=== PATIENT | male | born 1970 | race African-American/Black ===

== ENCOUNTER 2025-02-27 13:18 | Emergency (ER) | payer OTHER ==
[~2025-02-27] VITALS: Ht 177.8 cm; Wt 104.5 kg
[2025-02-27 13:23] VITALS: BP_DIAS 88; TEMP 97.9
[2025-02-27 15:40] VITALS: BP_SYST 136; PULSE 75; RESP 18; O2SAT 98
== END 2025-02-27 15:50 | disposition home or self-care (01) ==
LOC: EMS 13:18
DX: S86.111A Strain of other muscle(s) and tendon(s) of posterior muscle group at lower leg level, right leg, initial encounter (principal); X50.9XXA Other and unspecified overexertion or strenuous movements or postures, initial encounter; Y93.89 Activity, other specified; Y92.89 Other specified places as the place of occurrence of the external cause; Y99.8 Other external cause status
CPT/HCPCS: 93971; 99284; Z7502